=== PATIENT | female | born 1980 | race Two or more races ===

== ENCOUNTER 2021-01-03 14:10 | Emergency (ER) | payer MEDICAID, OTHER ==
[~2021-01-03] VITALS: Ht 170.2 cm; Wt 63.5 kg
[2021-01-03] MEDS ORDERED: KETOROLAC TROMETH 30 MG/ML 1ML VIAL IV ONE (15:30)
[2021-01-03 15:33] VITALS: BP 159/105
== END 2021-01-03 16:00 | disposition home or self-care (01) ==
LOC: EDBD 14:10 → ER 14:10
DX: S16.1XXA Strain of muscle, fascia and tendon at neck level, initial encounter (principal); R51.9 Headache, unspecified; I10 Essential (primary) hypertension; R42 Dizziness and giddiness; V43.52XA Car driver injured in collision with other type car in traffic accident, initial encounter; Y93.89 Activity, other specified; Y92.488 Other paved roadways as the place of occurrence of the external cause; Y99.8 Other external cause status
CPT/HCPCS: 70450; 72125; 96374; 99284; J1885